=== PATIENT | male | born 1945 | race Caucasian/White ===

== ENCOUNTER → 2017-04-17 | Outpatient (CLI) | payer MEDICARE | END | disposition home or self-care (01) | LOC: PCVCCLINIC 11:23 | PROVIDERS: ATTEND Internal Medicine Cardiovascular Disease | DX: I48.0 Paroxysmal atrial fibrillation (principal); I10 Essential (primary) hypertension; E78.5 Hyperlipidemia, unspecified; K21.9 Gastro-esophageal reflux disease without esophagitis; R94.31 Abnormal electrocardiogram [ECG] [EKG]; Z82.49 Family history of ischemic heart disease and other diseases of the circulatory system; Z96.653 Presence of artificial knee joint, bilateral; Z79.82 Long term (current) use of aspirin; Z79.899 Other long term (current) drug therapy; Z87.891 Personal history of nicotine dependence; Z79.01 Long term (current) use of anticoagulants | CPT/HCPCS: 80061; 93005; G0463 ==

== ENCOUNTER → 2017-09-18 | Outpatient (CLI) | payer MEDICARE ==
--- NOTE | 2017-09-18 16:46 | PCVCIMAG ---
APPROVED REPORT Exam: Stress Echocardiogram Indication: HTN,HLP,PAF, Patient Location: Echo lab Stress Nurse: Marley Torres RN Room #: 2 Status: routine Ht: 6 ft 0 in HR: 71 bpm BP: 126/78 mmHg Rhythm: NSR Medical History Medical History: KNEE REPLACEMENT X 2,PAROX A FIB,HTN,HLP Cardiac Risk Factors: HTN, Hyperlipidemia Previous Cardiac Procedures: none Pretest Chest Pain Characteristics: No chest pain Exercise History: Physically active Procedure The patient underwent an Exercise Stress Test using the Jasvir Protocol. Blood pressure, heart rate, and EKG were monitored. An Echocardiogram was performed by certified medication technician in four stages in quad fashion. At peak stress, four selected images were obtained and placed side by side with resting images for comparison. Stress Test Details Stress Test: Exercise stress testing was performed using a Jasvir protocol. HR Resting HR: 67 bpmMax Heart Rate (APMHR): 148 bpm Max HR Achieved: 110 bpmTarget HR (85% APMHR): 125 bpm % of APMHR: 74 Recovery HR: 78 bpm HR response to stress: Blunted HR response to stress BP Resting BP: 128/78 mmHg Max BP: 150/74 mmHg Recovery BP: 142/74 mmHg ECG Resting ECG: Sinus Rhythm Stress ECG: Sinus Rhythm ST Change: Upsloping ST depression, Non-ischemic Maximum ST Deviation: 1.4 mm Arrhythmia: None Recovery ECG: Sinus Rhythm Recovery ST Change: Upsloping ST depression, Non-ischemic Recovery ST Deviation: 0.8 mm Recovery Arrhythmia: None Clinical Reason for Termination: Maximal effort Stress Symptoms: NONE Exercise duration: 12 min sec Highest Stage Achieved: Stage 4: 4.2 mph at 16% grade. Exercise capacity: 13.4 METs Overall Exercise Capacity for Age: Good Angina Score: None Stress ECG Conclusion The patient exercised according to the Jasvir Protocol for 12:00 minutes, achieving a maximum work level of 13.4 METS. The resting heart rate of 67bpm, gretchen to a maximal level of 110 bpm. This value represents 110 % of the maximal, age-predicted heart rate. The resting blood pressure of 128/78 mmHg, gretchen to a maximum blood pressure of 150/74 mmHg. The exercise was stopped due to fatigue. Verdugo Treadmill Score is 5.0 which is Low risk. Pre-Stress Echo The resting Echocardiogram showed normal left ventricular contractility with an estimated Ejection Fraction of about 55-60%. Normal wall motion in all segments on baseline images. Post-Stress Echo The stress Echocardiogram showed normal left ventricular contractility with an estimated Ejection Fraction of about 65-70%. Normal augmentation of wall motion in all segments on post stress images. Clinical No clinical or ECG evidence for ischemia. Conclusion Clinical Response: Non-ischemic Exercise Capacity: Superior Stress ECG Response: Indeterminant Stress Echo Images: Non-ischemic Decreased sensitivity due to inability of the patient to achieve 85% of maximal HR. <Conclusion> Decreased sensitivity due to inability of the patient to achieve 85% of maximal HR.
== END | disposition home or self-care (01) ==
LOC: PCVCIMAG 11:27
PROVIDERS: ATTEND Internal Medicine Cardiovascular Disease
DX: I10 Essential (primary) hypertension (principal); E78.5 Hyperlipidemia, unspecified; I48.0 Paroxysmal atrial fibrillation; Z96.659 Presence of unspecified artificial knee joint
CPT/HCPCS: 93325; 93351

== ENCOUNTER → 2018-04-03 | Outpatient (CLI) | payer MEDICARE | END | disposition home or self-care (01) | LOC: PCVCCLINIC 12:56 | DX: I48.0 Paroxysmal atrial fibrillation (principal); E78.00 Pure hypercholesterolemia, unspecified; I10 Essential (primary) hypertension; I77.9 Disorder of arteries and arterioles, unspecified; R94.31 Abnormal electrocardiogram [ECG] [EKG]; Z82.49 Family history of ischemic heart disease and other diseases of the circulatory system; Z87.891 Personal history of nicotine dependence; Z79.82 Long term (current) use of aspirin; Z79.899 Other long term (current) drug therapy | CPT/HCPCS: 80061; 93005; G0463 ==

== ENCOUNTER → 2018-09-21 | Outpatient (CLI) | payer MEDICARE ==
--- NOTE | 2018-09-21 11:39 | PCVCIMAG ---
APPROVED REPORT Study performed: 09/21/2018 10:41:45 Exam: Stress Echocardiogram Indication: Hyperlipidemia, Hypertension Patient Location: Echo lab Stress Nurse: Claritza Sky RN Status: routine Ht: 6 ft 0 in HR: 81 bpm BP: 112/80 mmHg Rhythm: NSR Medical History Medical History: Family hx of CAD Procedure The patient underwent an Exercise Stress Test using the Jasvir Protocol. Blood pressure, heart rate, and EKG were monitored. An Echocardiogram was performed by field map technician in four stages in quad fashion. At peak stress, four selected images were obtained and placed side by side with resting images for comparison. Stress Test Details Stress Test: Exercise stress testing was performed using a Jasvir protocol. HR Resting HR: 81 bpmMax Heart Rate (APMHR): 147 bpm Max HR Achieved: 127 bpmTarget HR (85% APMHR): 124 bpm % of APMHR: 86 Recovery HR: 90 bpm HR response to stress: Normal HR response to stress BP Resting BP: 112/80 mmHg Max BP: 160/78 mmHg Recovery BP: 130/70 mmHg BP response to stress: Normal blood pressure response to stress. ECG Resting ECG: Sinus Rhythm Stress ECG: Sinus Rhythm Recovery ECG: Sinus Rhythm Clinical Reason for Termination: Maximal effort Exercise duration: 10 min 59 sec Highest Stage Achieved: Stage 4: 4.2 mph at 16% grade. Exercise capacity: 13.70 METs Overall Exercise Capacity for Age: Good Pre-Stress Echo The resting Echocardiogram showed normal left ventricular contractility with an estimated Ejection Fraction of about >55%. Normal wall motion in all segments on baseline images. Post-Stress Echo The stress Echocardiogram showed normal left ventricular contractility with an estimated Ejection Fraction of about 60-65%. Normal augmentation of wall motion in all segments on post stress images. Clinical No clinical or ECG evidence for ischemia. Conclusion Clinical Response: Non-ischemic Exercise Capacity: Superior Stress ECG Response: Non-ischemic Stress Echo Images: Non-ischemic The left ventricle is normal in size and wall thickness in both the rest and stress images. Other Information Study Quality: Good <Conclusion> The left ventricle is normal in size and wall thickness in both the rest and stress images.
== END | disposition home or self-care (01) ==
LOC: PCVCIMAG 10:24
PROVIDERS: ATTEND Internal Medicine Cardiovascular Disease
DX: I10 Essential (primary) hypertension (principal); I48.0 Paroxysmal atrial fibrillation; R94.31 Abnormal electrocardiogram [ECG] [EKG]; R07.9 Chest pain, unspecified; E78.5 Hyperlipidemia, unspecified; Z82.49 Family history of ischemic heart disease and other diseases of the circulatory system
CPT/HCPCS: 93325; 93351

== ENCOUNTER → 2019-04-30 | Outpatient (CLI) | payer MEDICARE | END | disposition home or self-care (01) | LOC: PCVCCLINIC 15:56 | PROVIDERS: ATTEND Internal Medicine Cardiovascular Disease | DX: R06.02 Shortness of breath (principal); I48.0 Paroxysmal atrial fibrillation; I10 Essential (primary) hypertension; E78.00 Pure hypercholesterolemia, unspecified; I77.9 Disorder of arteries and arterioles, unspecified; R00.1 Bradycardia, unspecified; K21.9 Gastro-esophageal reflux disease without esophagitis | CPT/HCPCS: 36415; 93005; G0463 ==